=== PATIENT | female | born 1955 | race African-American/Black ===

== ENCOUNTER 2020-11-19 10:41 | Emergency (ER) | payer MEDICARE, MEDICAID ==
[~2020-11-19] VITALS: Ht 160 cm; Wt 45.0 kg
[2020-11-19 19:07] VITALS: BP 130/73
== END 2020-11-19 19:38 | disposition home or self-care (01) ==
LOC: ER 10:56
DX: K94.29 Other complications of gastrostomy (principal); F79 Unspecified intellectual disabilities; I10 Essential (primary) hypertension; Z87.820 Personal history of traumatic brain injury; Y83.3 Surgical operation with formation of external stoma as the cause of abnormal reaction of the patient, or of later complication, without mention of misadventure at the time of the procedure; Y92.018 Other place in single-family (private) house as the place of occurrence of the external cause
CPT/HCPCS: 43762; 99285; Z7610

== ENCOUNTER 2021-10-17 07:22 | Inpatient (IN) | payer MEDICARE, MEDICAID ==
[~2021-10-17] VITALS: Ht 157.5 cm; Wt 60.3 kg
[2021-10-17 11:43] LABS: BASOPHILS % 0.4 % (0.0-2.0); EOSINOPHILS % 5.7 % (0.0-5.0); HEMATOCRIT. 27.7 % (36.0-48.0); LYMPHOCYTES % 10.6 % (20.0-50.0); MEAN CORPUSCULAR HEMOGLOBIN 28.8 pg (28.0-32.0); MEAN CORPUSCULAR VOLUME 88.2 fL (81.0-99.0); MEAN PLATELET VOLUME 10.5 fl (7.4-10.4); NEUTROPHILS % 75.3 % (40.0-76.0); PLATELET 228 x1000/uL (130-400); RED BLOOD CELL COUNT 3.14 mill/uL (4.2-5.4)
[2021-10-17 11:51] LABS: CHLORIDE 105 mEq/L (98-107)
[2021-10-17] MEDS ORDERED: ONDANSETRON HCL 4MG/2ML INJ IV PRN (12:30)
[2021-10-17] MEDS ORDERED: ACETAMINOPHEN 650MG SUPP PR PRN ×2 (12:30)
[2021-10-17 13:00] VITALS: BP 128/73
[2021-10-17] MEDS: SODIUM CHLORIDE 0.9% INJ 3ML FLUSH IVF SCH ×2 (14:00→22:54)
[2021-10-17] MEDS ORDERED: CEFAZOLIN 1000MG PREMIX 50 ML IV ONE (14:00)
[2021-10-17] MEDS ORDERED: LEVE1000 PO (15:34)
[2021-10-17] MEDS ORDERED: FURO20TA4 PO (15:34)
[2021-10-17] MEDS ORDERED: ANAS1TAB49 PO (15:36)
[2021-10-17] MEDS ORDERED: BACL-141 PO (15:36)
[2021-10-17] MEDS ORDERED: FAMO20TA8 PO (15:36)
[2021-10-17] MEDS ORDERED: LORA10TA7 PO (15:36)
[2021-10-17 16:15] LABS: PROTHROMBIN TIME 10.7 sec (9.6-11.0)
[2021-10-17] MEDS: FUROSEMIDE 20MG/2ML VIAL IVP SCH (17:19)
[2021-10-17] MEDS: LEVETIRACETAM 1000MG PREMIX 100 ML IV SCH ×2 (17:20→22:52)
[2021-10-17] MEDS: SODIUM CHLORIDE 0.9% 1,000 ML IV SCH (19:30)
[2021-10-17 20:00] VITALS: BP 123/69
[2021-10-18] VITALS: BP 122/63
[2021-10-18 04:00] VITALS: BP 120/64
[2021-10-18] MEDS: SODIUM CHLORIDE 0.9% 1,000 ML IV SCH ×2 (05:33→22:10)
[2021-10-18] MEDS: SODIUM CHLORIDE 0.9% INJ 3ML FLUSH IVF SCH ×5 (05:35→22:56)
[2021-10-18 06:37] LABS: PROTHROMBIN TIME 10.8 sec (9.6-11.0)
[2021-10-18 06:45] LABS: BASOPHILS % 0.4 % (0.0-2.0); EOSINOPHILS % 6.3 % (0.0-5.0); HEMATOCRIT. 26.6 % (36.0-48.0); HEMOGLOBIN. 8.7 g/dL (12.0-16.0); MEAN CORPUSCULAR HEMOGLOBIN 28.7 pg (28.0-32.0); MEAN CORPUSCULAR VOLUME 88.1 fL (81.0-99.0); MEAN PLATELET VOLUME 10.9 fl (7.4-10.4); MONOCYTES % 9.3 % (2.0-8.0); PLATELET 229 x1000/uL (130-400); RED BLOOD CELL COUNT 3.02 mill/uL (4.2-5.4); RED CELL DISTRIBUTION WIDTH 15.5 % (11.6-14.6)
[2021-10-18 07:46] LABS: CHLORIDE 111 mEq/L (98-107)
[2021-10-18 08:00] VITALS: BP 137/80
[2021-10-18] MEDS: LEVETIRACETAM 1000MG PREMIX 100 ML IV SCH ×2 (10:06→20:55)
[2021-10-18] MEDS: PANTOPRAZOLE SODIUM 40 MG/VIAL IV SCH (10:06)
[2021-10-18] MEDS: FUROSEMIDE 20MG/2ML VIAL IVP SCH (10:07)
[2021-10-18 12:00] VITALS: BP 123/84
[2021-10-18] MEDS ORDERED: CEFAZOLIN 1000MG PREMIX 50 ML IV NR (14:00)
[2021-10-18 16:00] VITALS: BP 152/69
[2021-10-18 20:00] VITALS: BP 154/83
[2021-10-19] VITALS: BP 129/62
[2021-10-19 03:34] LABS: BASOPHILS % 0.3 % (0.0-2.0); EOSINOPHILS % 6.6 % (0.0-5.0); HEMATOCRIT. 26.9 % (36.0-48.0); HEMOGLOBIN. 8.7 g/dL (12.0-16.0); LYMPHOCYTES % 15.4 % (20.0-50.0); MEAN CORPUSCULAR HEMOGLOBIN 28.9 pg (28.0-32.0); MEAN CORPUSCULAR VOLUME 89.3 fL (81.0-99.0); MEAN PLATELET VOLUME 10.7 fl (7.4-10.4); NEUTROPHILS % 67.7 % (40.0-76.0); PLATELET 215 x1000/uL (130-400); RED BLOOD CELL COUNT 3.01 mill/uL (4.2-5.4); RED CELL DISTRIBUTION WIDTH 15.1 % (11.6-14.6)
[2021-10-19 03:39] LABS: PROTHROMBIN TIME 11.1 sec (9.6-11.0)
[2021-10-19 04:00] VITALS: BP 131/62
[2021-10-19 04:02] LABS: CHLORIDE 112 mEq/L (98-107)
[2021-10-19] MEDS: GUAIFENESIN 200MG/10ML SUGAR FREE UDC PO SCH ×4 (05:45→17:53)
[2021-10-19] MEDS: SODIUM CHLORIDE 0.9% INJ 3ML FLUSH IVF SCH ×3 (05:45→20:42)
[2021-10-19 08:00] VITALS: BP 152/80
[2021-10-19] MEDS ORDERED: CEFAZOLIN 1000MG PREMIX 50 ML IV NR (09:00)
[2021-10-19] MEDS: ANASTROZOLE 1 MG TABLET PO SCH ×2 (09:00→09:57)
[2021-10-19] MEDS: LORATADINE 10MG TABLET PO SCH ×2 (09:00→09:58)
[2021-10-19] MEDS: BACLOFEN 10MG TABLET PO SCH ×2 (09:00→09:57)
[2021-10-19] MEDS: LEVETIRACETAM 1000MG PREMIX 100 ML IV SCH ×2 (09:56→20:42)
[2021-10-19] MEDS: PANTOPRAZOLE SODIUM 40 MG/VIAL IV SCH (09:56)
[2021-10-19] MEDS: FUROSEMIDE 20MG/2ML VIAL IVP SCH (09:58)
[2021-10-19] MEDS: SODIUM CHLORIDE 0.9% 1,000 ML IV SCH (11:30)
[2021-10-19] MEDS ORDERED: MIDAZOLAM HCL 5 MG/5 ML VIAL ONE (12:38)
[2021-10-19] MEDS ORDERED: MIDAZOLAM HCL 5 MG/5 ML VIAL IV PRN (12:50)
[2021-10-19 16:00] VITALS: BP 159/76
[2021-10-19] MEDS: METOCLOPRAMIDE HCL 10MG/2ML VIAL IV SCH (17:53)
[2021-10-19 20:00] VITALS: BP 150/81
[2021-10-20] VITALS: BP 141/72
[2021-10-20] MEDS: SODIUM CHLORIDE 0.9% 1,000 ML IV SCH ×2 (00:03→13:50)
[2021-10-20] MEDS: METOCLOPRAMIDE HCL 10MG/2ML VIAL IV SCH ×3 (00:08→12:30)
[2021-10-20] MEDS: GUAIFENESIN 200MG/10ML SUGAR FREE UDC PO SCH ×3 (00:08→12:30)
[2021-10-20 04:00] VITALS: BP 134/65
[2021-10-20] MEDS: SODIUM CHLORIDE 0.9% INJ 3ML FLUSH IVF SCH ×2 (05:26→13:49)
[2021-10-20 08:00] VITALS: BP 142/68
[2021-10-20 08:47] LABS: BASOPHILS % 0.3 % (0.0-2.0); EOSINOPHILS % 4.5 % (0.0-5.0); HEMATOCRIT. 26.5 % (36.0-48.0); HEMOGLOBIN. 8.9 g/dL (12.0-16.0); LYMPHOCYTES % 9.1 % (20.0-50.0); MEAN CORPUSCULAR HEMOGLOBIN 29.3 pg (28.0-32.0); MEAN CORPUSCULAR VOLUME 87.1 fL (81.0-99.0); MEAN PLATELET VOLUME 10.7 fl (7.4-10.4); NEUTROPHILS % 77.1 % (40.0-76.0); PLATELET 208 x1000/uL (130-400); RED BLOOD CELL COUNT 3.05 mill/uL (4.2-5.4); RED CELL DISTRIBUTION WIDTH 14.9 % (11.6-14.6)
[2021-10-20 09:02] LABS: CHLORIDE 115 mEq/L (98-107)
[2021-10-20] MEDS: ANASTROZOLE 1 MG TABLET PO SCH (09:30)
[2021-10-20] MEDS: LEVETIRACETAM 1000MG PREMIX 100 ML IV SCH (09:30)
[2021-10-20] MEDS: FUROSEMIDE 20MG/2ML VIAL IVP SCH (09:30)
[2021-10-20] MEDS: PANTOPRAZOLE SODIUM 40 MG/VIAL IV SCH (09:30)
[2021-10-20] MEDS: BACLOFEN 10MG TABLET PO SCH (09:30)
[2021-10-20] MEDS: LORATADINE 10MG TABLET PO SCH (09:30)
[2021-10-20 12:00] VITALS: BP 141/81
[2021-10-20 13:16] VITALS: BP 141/81
== END 2021-10-20 15:50 | disposition home health service (06) | DRG 252 ==
LOC: ER 07:43 → ENRESERV 10:55 → 7WST 12:15
PROVIDERS: ADMIT Internal Medicine; ATTEND Internal Medicine
PROC: 0DH68UZ Insertion of Feeding Device into Stomach, Via Natural or Artificial Opening Endoscopic (ICD-10-PCS; principal; 2021-10-19)
PROC: 3E0G76Z Introduction of Nutritional Substance into Upper GI, Via Natural or Artificial Opening (ICD-10-PCS; 2021-10-19)
DX: K94.23 Gastrostomy malfunction (principal); G93.40 Encephalopathy, unspecified; G93.1 Anoxic brain damage, not elsewhere classified; E44.1 Mild protein-calorie malnutrition; J96.11 Chronic respiratory failure with hypoxia; Z86.74 Personal history of sudden cardiac arrest; Z20.822 Contact with and (suspected) exposure to COVID-19; D64.9 Anemia, unspecified; I10 Essential (primary) hypertension; R13.12 Dysphagia, oropharyngeal phase; K44.9 Diaphragmatic hernia without obstruction or gangrene; Z85.3 Personal history of malignant neoplasm of breast; Z87.19 Personal history of other diseases of the digestive system; Z68.24 Body mass index [BMI] 24.0-24.9, adult
CPT/HCPCS: 36415; 71045; 80048; 80053; 85025; 87426; 93970; 99285; C1893; C9113; J0690; J1940; J1953; J2250; J2765; J7030; J7050; A4315